=== PATIENT | male | born 2000 | race American Indian/Alaskan Native ===

== ENCOUNTER 2019-09-25 15:18 | Emergency (ER) | payer SELFPAY ==
[2019-09-25 16:11] LABS: Bilirubin,Urine NEG (Negative); Blood,Urine NEG (Negative); Color,Urine Yellow (Yellow); Mucus,Urine 3+ /HPF; Protein,Urine <15 mg/dL mg/dL (Negative); Urobilinogen,Urine < 2.0 mg/dL (<2.0)
[2019-09-25 16:21] LABS: Amphetamine Screen,Urine PRESUMPTIVE NEGATIVE; Benzodiazepines Screen,Urine PRESUMPTIVE NEGATIVE; Cocaine Screen,Urine PRESUMPTIVE NEGATIVE; Methadone Screen,Urine PRESUMPTIVE NEGATIVE; Opiate Screen,Urine PRESUMPTIVE NEGATIVE
--- NOTE | 2019-09-25 16:28 | Emergency Department Report ---
ED Psych HPI - General Chief Complaint: Psych Stated Complaint: SI Time Seen by Provider: 09/25/19 16:10 Source: patient Mode of arrival: Ambulatory - History of Present Illness Initial Comments: Patient is 19 years old male brought to the emergency room via EMS from home for evaluation of suicidal ideation. Patient stated that he is hearing voices asking him to kill himself by cutting his wrist. Patient presented with multiple abrasion to the left forearm. Patient also stated that he has visual hallucination as he is seeing shadows and animals. Patient denied any homicidal ideation. MD Complaint: suicidal ideation, feels depressed Associated Psychiatric Symptoms: depression, suicidal ideation, racing thoughts, auditory hallucinations, visual hallucinations History of same: Yes Quality: constant Associated Symptoms: denies other symptoms Treatments Prior to Arrival: none If Self Harm: admits thoughts of, has plan, self-inflicted trauma - Related Data Allergies Allergy/AdvReac Type Severity Reaction Status Date / Time No Known Allergies Allergy Verified 09/25/19 15:31 ED Review of Systems ROS: Stated complaint: SI Other details as noted in HPI Comment: All other systems reviewed and negative Constitutional: denies: chills, fever Respiratory: denies: cough, shortness of breath, SOB with exertion, SOB at rest, wheezing Cardiovascular: denies: chest pain, palpitations Gastrointestinal: denies: abdominal pain, nausea, vomiting, diarrhea, constipation, hematemesis, hematochezia Musculoskeletal: denies: back pain Neurological: denies: weakness Psychiatric: depression, auditory hallucinations, visual hallucinations. denies: homicidal thoughts, suicidal thoughts ED Past Medical Hx - Past Medical History Previous Medical History?: No - Surgical History Past Surgical History?: No - Social History Smoking Status: Never Smoker Substance Use Type: None ED Physical Exam - General Limitations: No Limitations General appearance: alert, in no apparent distress - Head Head exam: Present: atraumatic, normocephalic, normal inspection - Eye Eye exam: Present: normal appearance, PERRL - ENT ENT exam: Present: normal exam, normal orophraynx, mucous membranes moist - Neck Neck exam: Present: normal inspection, full ROM. Absent: tenderness, meningismus, lymphadenopathy, thyromegaly - Respiratory Respiratory exam: Present: normal lung sounds bilaterally - Cardiovascular Cardiovascular Exam: Present: regular rate, normal rhythm, normal heart sounds - GI/Abdominal GI/Abdominal exam: Present: soft, normal bowel sounds. Absent: distended, tenderness, guarding, rebound, rigid, organomegaly, mass, bruit, pulsatile mass, hernia - Extremities Exam Extremities exam: Present: normal inspection, full ROM, normal capillary refill. Absent: tenderness, calf tenderness - Back Exam Back exam: Present: normal inspection, full ROM. Absent: CVA tenderness (R), CVA tenderness (L) - Neurological Exam Neurological exam: Present: alert, oriented X3, CN II-XII intact, normal gait, reflexes normal. Absent: motor sensory deficit - Psychiatric Psychiatric exam: Present: anxious, suicidal ideation. Absent: homicidal ideation - Skin Skin exam: Present: warm, abrasion (Left forearm.) Critical care attestation.: If time is entered above; I have spent that time in minutes in the direct care of this critically ill patient, excluding procedure time. ED Disposition Condition: Stable
[2019-09-25 16:37] LABS: Basophils # (Auto) 0.1 K/mm3 (0.0-0.1); Basophils % (Auto) 1.8 % (0.0-1.8); Eosinophils # (Auto) 0.2 K/mm3 (0.0-0.4); Eosinophils % (Auto) 4.1 % (0.0-4.3); Hematocrit 46.5 % (35.5-45.6); Hemoglobin 15.3 gm/dl (11.8-15.2); Lymphocytes % (Auto) 35.1 % (13.4-35.0); Mean Corpuscular HGB Conc 33 % (32-34); Mean Corpuscular Volume 91 fl (84-94); Monocytes # (Auto) 0.4 K/mm3 (0.0-0.8); Monocytes % (Auto) 6.5 % (0.0-7.3); Platelet Count 230 K/mm3 (140-440); Red Blood Count 5.14 M/mm3 (3.65-5.03); Red Cell Distribution Width 14.1 % (13.2-15.2)
[2019-09-25 16:37] LABS: Cannabinoid Screen,Urine PRESUMPTIVE POSITIVE
[2019-09-25 16:55] LABS: BUN/Creatinine Ratio 13; Blood Urea Nitrogen 12 mg/dL (9-20); Calcium 10.1 mg/dL (8.4-10.2); Hemolysis Index 8
--- NOTE | 2019-09-26 13:51 | Consultation ---
History of Present Illness - Reason for Consult Consult date: 09/26/19 Reason for consult: SI with plan - History of Present Psychiatric Illness The patient's medical record was reviewed and the patient's progress was discussed with the nursing staff. Hugo Perez is a 19y/o male patient who was admitted into the ER for suicidal ideation, according to the chart. The patient is a/o x 3. He is dressed appropriately. He is talkative and at times difficulty to follow. He is experiencing flight of ideas. He is pleasant. He makes good eye contact. He is responding to internal stimuli. He darts his eye back and forth at times during the interview. He describes his mood as "sort of chill." He currently denies SI/HI and states, "I have never been." The patient states to me "I felt like I was hearing things." He then cuts his eyes at the wall. He says, "I was hearing things talk to me so I started staring at the sun. I saw a big, black bee and I tried to make myself go blind." The patient states, "I think drugs sparked my snap." He then states, "I think that's what caused the hallucinations." The patient says he did "acid once before" He could not recall if he had or had not tried it right before this admit. He says "I have a lot going on, but If I hurt myself, that would be the reason." He says "I made some bad decisions in my life." The patient says "I don't like to tell people like you what's going on because all you're going to do is think I'm crazy." He then says, "I need to work this out with my family." The patient asks me if I could arrange a meeting with his "brother and cousin." The patient starts talking about, "I feel I need to be free. I can talk to my family and they can walk me out of here all chill." He says he "hears birds and they want to take a picture with me." The patient says he has a history of "schizophrenia" He then states, "but that has nothing to do with anything." He could not remember his medications, but states it is a "little pink pill that caused vivid dreams." He says he "stopped taking it." PAST PSYCHIATRIC HISTORY: Diagnoses: schizophrenia Suicide attempts or Self-harm behavior: Denies Prior psychiatric hospitalizations: Denies Substance Abuse history: Acid Previous psychiatric medications tried: a little pink pill Outpatient treatment: Yes PAST MEDICAL HISTORY: None reported Family Psychiatric History: None reported or documented SOCIAL HISTORY Current living status: Mother Highest level of education: High school diploma Marital status: Single Legal history: Denies History of abuse: Denies REVIEW OF SYSTEMS Constitutional: Negative for weight loss ENT: Negative for stridor Respiratory: Negative for cough or hemoptysis All other systems reviewed and are negative MENTAL STATUS EXAMINATION General Appearance: Dressed appropriately Behavior: Calm, cooperative. pleasant Mood: "sort of chill" Affect: Congruent with stated mood Speech: Normal tone and pace Thought Process: responding to internal stimuli, flight of ideas Thought Content: Suicidal Ideation: Denies Homicidal Ideation: Denies Hallucinations: Auditory/Visual Delusions: Yes Insight and Judgment: Limited Memory/Cognition: Limited Assessment Schizoaffective Disorder Plan MEDICATIONS: Risperidone 0.25mg po BID Trazodone 50mg po qhs Melatonin 5mg po qhs prn insomnia Geodon 10mg IM q4h prn agitation Risks, benefits and alternatives of medications discussed with the patient, questions answered and consent obtained from patient. PSYCHOTHERAPY: Supportive psychotherapy provided MEDICAL: Per primary team DELIRIUM PRECAUTIONS: Please re-orient patient frequently, keep lights on during the day, and minimize benzodiazepines and opiates as these medications could worsen patient's confusion. INSURANCE UNDERWRITER SALES: Per Medical team. DISPOSITION: The patient meets the requirement for acute inpatient psychiatric hospitalization at this time. He may transfer to an acute psychiatric facility once medically clear. The treatment plan was explained to the patient. He verbalizes understanding and agreement of plan. Will continue to follow until the patient is transferred or his condition improv es enough for discharge Thank you for the consult. Please contact with any questions or concerns. Medications and Allergies Allergies Allergy/AdvReac Type Severity Reaction Status Date / Time No Known Allergies Allergy Verified 09/25/19 15:31 Home Medications Medication Instructions Recorded Confirmed Last Taken Type No Known Home Medications [No 09/25/19 09/25/19 Unknown History Reported Home Medications] Mental Status Exam - Vital signs Last Vital Signs Temp 98.1 F 09/26/19 01:40 Pulse 62 09/26/19 01:40 Resp 18 09/26/19 08:24 BP 134/86 09/26/19 01:40 Pulse Ox 99 09/26/19 08:24 Results Result Diagrams: 09/25/19 16:15 09/25/19 16:15 Abnormal lab results 09/25/19 09/25/19 09/25/19 Range/Units 16:15 16:15 16:15 RBC (3.65-5.03) M/mm3 Hgb (11.8-15.2) gm/dl Hct (35.5-45.6) % Lymph % (Auto) (13.4-35.0) % Glucose 132 H (75-100) mg/dL Salicylates < 0.3 L (2.8-20.0) mg/dL Acetaminophen < 5.0 L (10.0-30.0) ug/mL 09/25/19 Range/Units 16:15 RBC 5.14 H (3.65-5.03) M/mm3 Hgb 15.3 H (11.8-15.2) gm/dl Hct 46.5 H (35.5-45.6) % Lymph % (Auto) 35.1 H (13.4-35.0) % Glucose (75-100) mg/dL Salicylates (2.8-20.0) mg/dL Acetaminophen (10.0-30.0) ug/mL All other labs normal.
[2019-09-26] MEDS ORDERED: MELATONIN 5 MG TAB PO PRN (14:12)
[2019-09-26] MEDS ORDERED: ZIPRASIDONE MESYLATE 20 MG VIAL IM PRN (14:12)
[2019-09-26] MEDS: risperiDONE 0.25 MG TAB PO SCH ×2 (15:24→22:37)
[2019-09-26 20:00] VITALS: BP 124/86
[2019-09-26] MEDS ORDERED: traZODone 50 MG TAB PO SCH (22:00)
--- NOTE | 2019-09-27 09:32 | Progress Note ---
Subjective - Reason for Consult Consult date: 09/27/19 Reason for consult: SI, hallucinations - Chief Complaint Chief complaint: The patient's chart was reviewed and the patient's progress was discussed with the medical staff. The nurse caring for the patient states the patient ran out of the hospital and had to be brought back by security. During my interview with the patient this morning, he was sitting on the cot. He is a/o x 3. He is responding to internal stimuli. He is telling me how he ran out of the hospital and "through the neighborhood." He states to me, "I don't want to be here. I don't have any mental issues." He then says, "I don't feel comfortable at all talking with anyone. I need a therapist." The patient says, "the things I see and hear are real. They are not hallucinations." He denies SI/HI, but then states, "there are things I need to talk about that make me suicidal." The patient asks me if I could get his medical records from [facility]. He then states, "there was medicine they gave me that opened my head up." The patient describes his mood, as "it's okay, but I'm uncomfortable." He says his appetite is good and he slept "okay." REVIEW OF SYSTEMS Constitutional: Negative for weight loss ENT: Negative for stridor Respiratory: Negative for cough or hemoptysis All other systems reviewed and are negative MENTAL STATUS EXAMINATION General Appearance: Dressed appropriately Behavior: Calm, cooperative. Mood: "okay, but uncomfortablel" Affect: Congruent with stated mood Speech: Normal tone and pace Thought Process: responding to internal stimuli, flight of ideas Thought Content: Suicidal Ideation: Yes Homicidal Ideation: Denies Hallucinations: Auditory/Visual Delusions: Yes Insight and Judgment: Limited Memory/Cognition: Limited Assessment Schizoaffective Disorder Plan MEDICATIONS: Increased Risperidone 1mg po BID Prozac 10mg po daily to decrease underlying depression Risks, benefits and alternatives of medications discussed with the patient, questions answered and consent obtained from patient. PSYCHOTHERAPY: Supportive psychotherapy provided MEDICAL: Per primary team DELIRIUM PRECAUTIONS: Please re-orient patient frequently, keep lights on during the day, and minimize benzodiazepines and opiates as these medications could worsen patient's confusion. BEND SORTER: Per Medical team. DISPOSITION: The patient meets the requirement for acute inpatient psychiatric hospitalization at this time. He may transfer to an acute psychiatric facility once medically clear. The treatment plan was explained to the patient. He verbalizes understanding and agreement of plan. Will continue to follow until the patient is transferred or his condition improves enough for discharge Thank you for the consult. Please contact with any questions or concerns. Mental Status Exam - Vital signs Last Vital Signs Temp 98.4 F 09/26/19 19:59 Pulse 89 09/26/19 19:59 Resp 16 09/26/19 19:59 BP 124/86 09/26/19 19:59 Pulse Ox 97 09/26/19 19:59
[2019-09-27] MEDS ORDERED: FLUoxetine 10 MG TAB PO SCH (10:00)
[2019-09-27] MEDS ORDERED: risperiDONE 0.25 MG TAB PO SCH (10:00)
== END 2019-09-27 14:45 ==
LOC: ED 15:18
DX: S50.812A Abrasion of left forearm, initial encounter (principal); R45.851 Suicidal ideations; R44.1 Visual hallucinations; R44.0 Auditory hallucinations; R00.2 Palpitations; F32.9 Major depressive disorder, single episode, unspecified; F41.9 Anxiety disorder, unspecified; X78.9XXA Intentional self-harm by unspecified sharp object, initial encounter; Y93.89 Activity, other specified; Y92.89 Other specified places as the place of occurrence of the external cause; Y99.8 Other external cause status
CPT/HCPCS: 36415; 80048; 80307; 80320; 81001; 85025; G0480